=== PATIENT | female | born 1975 | race Caucasian/White ===

== ENCOUNTER 2018-12-07 13:52 | Observation (INO) ==
[2018-12-07] MEDS ORDERED: Acetaminophen 500 MG Tablet PO ONE (17:30)
--- NOTE | 2018-12-07 17:37 | ED ---
HPI General Chief Complaint: Chest Pain Stated Complaint: Chest/GI/ Complaint Time Seen by Provider: 12/07/18 17:13 Source: patient and family Mode of arrival: ambulatory Limitations: no limitations History of Present Illness HPI narrative: 43y female with a history of DM and FAH presents to the ED for evaluation of chest pain that started at noon today. She states she was with her here in the ED when it started. She points to her midsternal region and says it does not radiate. Described as sharp and aching. No palliative factors but states coughing makes it worse. She admits that she has had a mild cough that started last night but is unsure if this is related to allergies as she has environmental allergies. She denies shortness of breath. Denies history of tobacco use. Family history is notable for diabetes but no known cardiac problems. Her and her also note recent travel greater than 6 hours within the last couple of months. She denies history of blood clots previously. Denies history of cardiac problems. Brandon history of chest pain previously. Admits to a history of HTN, HLD, DM, alcohol syndrome. MD complaint: Reports chest pain Related Data Home Medications Medication Instructions Recorded Confirmed alprazolam [Xanax] 0.5 mg PO BID 11/10/18 12/07/18 ezetimibe [Zetia] 10 mg PO DAILY 11/10/18 12/01/18 glipizide 10 mg PO DAILY 11/10/18 12/07/18 metformin 500 mg PO BID 11/10/18 12/07/18 aspirin 325 mg PO DAILY 12/07/18 12/07/18 Previous Rx's Medication Instructions Recorded diclofenac sodium 75 mg PO BID PRN #20 tab 11/10/18 methocarbamol [Robaxin] 500 mg PO Q6H PRN #20 tab 11/10/18 tramadol 50 mg PO Q6-8H PRN #10 tab 11/10/18 diclofenac sodium 50 mg PO TID #12 tab 12/02/18 Allergies Allergy/AdvReac Type Severity Reaction Status Date / Time gabapentin Allergy Itching Verified 11/10/18 19:33 [facility] Medical History Medical History Anxiety (Acute) alcohol spectrum disorder (Acute) alcohol syndrome (Acute) Depression (Acute) Diabetes (Acute) Hyperlipemia (Acute) Social History Social History Substance History: No History of Abuse Second Hand Smoke Exposure: No Smoking Status: Never smoker How Often Do You Have a Drink Containing Alcohol: 4 or more times a week Recent Travel in [facility] within the Last 8 Weeks: No Recent Out of Country Travel within the Last 8 Weeks: No Immunization History Tetanus Immunization: >5 Years Exam Narrative Exam Narrative: GENERAL: WD, WN in NAD SKIN: Focused skin assessment warm/dry. HEAD: Atraumatic. Normocephalic. EYES: Pupils equal and round. No scleral icterus. No injection or drainage. ENT: No nasal bleeding or discharge. Mucous membranes pink and moist. No tonsillar hypertrophy or exudate. NECK: Trachea midline. No JVD. No meningismus. No midline tenderness. CARDIOVASCULAR: Regular rate and rhythm. No murmur appreciated. RESPIRATORY: No accessory muscle use. Clear to auscultation. Breath sounds equal bilaterally. MUSCULOSKELETAL: No obvious deformities. No clubbing. No cyanosis. No edema. No tenderness to palpation of the calves. Sensation intact to bilateral lower extremities. NEUROLOGICAL: Awake and alert. No obvious cranial nerve deficits. Motor grossly within normal limits. Normal speech. PSYCHIATRIC: Appropriate mood and affect; insight and judgment normal. Course Initial Documented Vital Signs Temperature 99.7 F H 12/07/18 13:55 Pulse Rate 110 H 12/07/18 13:55 Respiratory Rate 20 12/07/18 13:55 Blood Pressure 141/79 H 12/07/18 13:55 Pulse Oximetry 96 12/07/18 13:55 Last Documented Vital Signs Temperature 98.4 F 12/08/18 08:00 Pulse Rate 87 12/08/18 08:00 Respiratory Rate 16 12/08/18 08:00 Blood Pressure 109/59 L 12/08/18 08:00 Pulse Oximetry 96 12/08/18 08:00 Clinical Decision Support HEART Score Questions History: Slightly suspicious EKG: Normal Age: < 45 years Risk Factors: 1-2 Risk Factors Initial Troponin: Normal Limit Heart Score HEART Score: 1 Medical Decision Making GERHARD Attestation GERHARD supervised visit: Yes Attestation: I, Dr. Abdullahi, have reviewed the advance practice practitioner's documentation and am in agreement, met with the patient face to face, made the diagnosis, and the medical decision making was done by me. *My assessment and Findings: Chest pain MDM Narrative Medical decision making narrative: 42-year-old female with a history of diabetes mellitus, hypertension, hyperlipidemia, alcohol syndrome presents to the emergency department for evaluation of chest pain that started about noon today. She states that she was here at [place] with her when her pain started. She denies palliative factors but states coughing makes it worse. She points to the midsternal region and states it is nonradiating. Site is mild to moderate in severity. She denies shortness of breath but has associated nausea without vomiting. She denies history of heart problems previously. Patient states she is never worked up for her heart previously. She is a lifelong non-smoker. No known family history of heart disease. Her accompanies her and interjects frequently. Vital signs demonstrate blood pressure 118/81, heart rate 104, temp 99.1 Aspirin for possible ACS. Tylenol as she states she is developed a headache. Zofran for nausea. Her labs are stable at this time. Troponin less than 0.02. Magnesium 2.1. BUN and creatinine 12 and 0.83. Blood sugar 151. AST/ALT 97/79. Based off is a physical, believe that patient would benefit from a chest pain center admission and evaluation. She has never been evaluated for this complaint previously. 1/2 inch Nitropaste administered prior to her departure from the ED today. Medical Screen Exam Complete: Yes Emergency Medical Condition: Yes Differential Diagnosis Differential Diagnosis: AMI, angina, unstable angina, costochondritis, rib fracture, pneumonia, pneumothorax, aortic dissection, aortic aneurysm, pneumonitis, pulmonary embolism Lab Data Result diagrams: 12/07/18 17:10 12/07/18 17:10 Lab Results 12/07/18 12/07/18 12/07/18 Range/Units 17:10 17:10 17:10 WBC 6.9 (4.0-11.0) th/mm3 RBC 4.63 (4.00-5.30) mil/mm3 Hgb 15.0 (11.6-15.3) gm/dL Hct 44.0 (35.0-46.0) % MCV 94.8 (80.0-100.0) fL MCH 32.4 (27.0-34.0) pg MCHC 34.2 (32.0-36.0) % RDW 13.2 (11.6-17.2) % Plt Count 142 L (150-450) th/mm3 MPV 11.6 H (7.0-11.0) fL Neut % (Auto) 71.7 H (16.0-70.0) % Lymph % (Auto) 13.7 (9.0-44.0) % [place] % (Auto) 13.7 H (0.0-8.0) % Eos % (Auto) 0.5 (0.0-4.0) % Baso % (Auto) 0.4 (0.0-2.0) % Neut # (Auto) 5.0 (1.8-7.7) th/mm3 Lymph # (Auto) 1.0 (1.0-4.8) th/mm3 [place] # (Auto) 1.0 H (0.0-0.9) th/mm3 Eos # (Auto) 0.0 (0.0-0.4) th/mm3 Baso # (Auto) 0.0 (0.0-0.2) th/mm3 WBC Differential . Differential Comment Auto diff final PT 9.8 (9.8-11.6) sec INR 1.0 Ratio APTT 26.7 (23.4-31.7) sec D-Dimer Quant (PE/DVT) 0.38 (0.00-0.50) mg/L FEU Sodium 135 L (136-145) meq/L Potassium 4.9 (3.5-5.1) meq/L Chloride 102 (98-107) meq/L Carbon Dioxide 24.5 (21.0-32.0) meq/L Anion Gap 9 (5-15) meq/L BUN 12 (7-18) mg/dL Creatinine 0.83 (0.50-1.00) mg/dL Estimated GFR 75 L (>89) mL/min POC Glucose (68-110) mg/dl Random Glucose 151 H (74-106) mg/dL Calcium 9.0 (8.5-10.1) mg/dL Magnesium (1.5-2.5) mg/dL Total Bilirubin 0.5 (0.2-1.0) mg/dL AST 97 H (15-37) U/L ALT 79 H (10-53) U/L Alkaline Phosphatase 52 (45-117) U/L Total Creatine Kinase (26-192) U/L Troponin I Less than 0.02 L (0.02-0.05) ng/mL Total Protein 8.9 H (6.4-8.2) g/dL Albumin 4.3 (3.4-5.0) g/dL 12/07/18 12/07/18 12/07/18 Range/Units 17:10 17:10 20:51 WBC (4.0-11.0) th/mm3 RBC (4.00-5.30) mil/mm3 Hgb (11.6-15.3) gm/dL Hct (35.0-46.0) % MCV (80.0-100.0) fL MCH (27.0-34.0) pg MCHC (32.0-36.0) % RDW (11.6-17.2) % Plt Count (150-450) th/mm3 MPV (7.0-11.0) fL Neut % (Auto) (16.0-70.0) % Lymph % (Auto) (9.0-44.0) % [place] % (Auto) (0.0-8.0) % Eos % (Auto) (0.0-4.0) % Baso % (Auto) (0.0-2.0) % Neut # (Auto) (1.8-7.7) th/mm3 Lymph # (Auto) (1.0-4.8) th/mm3 [place] # (Auto) (0.0-0.9) th/mm3 Eos # (Auto) (0.0-0.4) th/mm3 Baso # (Auto) (0.0-0.2) th/mm3 WBC Differential Differential Comment PT Cancelled (9.8-11.6) sec INR Cancelled Ratio APTT Cancelled (23.4-31.7) sec D-Dimer Quant (PE/DVT) (0.00-0.50) mg/L FEU Sodium (136-145) meq/L Potassium (3.5-5.1) meq/L Chloride (98-107) meq/L Carbon Dioxide (21.0-32.0) meq/L Anion Gap (5-15) meq/L BUN (7-18) mg/dL Creatinine (0.50-1.00) mg/dL Estimated GFR (>89) mL/min POC Glucose (68-110) mg/dl Random Glucose (74-106) mg/dL Calcium (8.5-10.1) mg/dL Magnesium 2.1 (1.5-2.5) mg/dL Total Bilirubin (0.2-1.0) mg/dL AST (15-37) U/L ALT (10-53) U/L Alkaline Phosphatase (45-117) U/L Total Creatine Kinase 63 (26-192) U/L Troponin I Less than 0.02 L (0.02-0.05) ng/mL Total Protein (6.4-8.2) g/dL Albumin (3.4-5.0) g/dL 12/07/18 12/07/18 Range/Units 21:20 23:25 WBC (4.0-11.0) th/mm3 RBC (4.00-5.30) mil/mm3 Hgb (11.6-15.3) gm/dL Hct (35.0-46.0) % MCV (80.0-100.0) fL MCH (27.0-34.0) pg MCHC (32.0-36.0) % RDW (11.6-17.2) % Plt Count (150-450) th/mm3 MPV (7.0-11.0) fL Neut % (Auto) (16.0-70.0) % Lymph % (Auto) (9.0-44.0) % [place] % (Auto) (0.0-8.0) % Eos % (Auto) (0.0-4.0) % Baso % (Auto) (0.0-2.0) % Neut # (Auto) (1.8-7.7) th/mm3 Lymph # (Auto) (1.0-4.8) th/mm3 [place] # (Auto) (0.0-0.9) th/mm3 Eos # (Auto) (0.0-0.4) th/mm3 Baso # (Auto) (0.0-0.2) th/mm3 WBC Differential Differential Comment PT (9.8-11.6) sec INR Ratio APTT (23.4-31.7) sec D-Dimer Quant (PE/DVT) (0.00-0.50) mg/L FEU Sodium (136-145) meq/L Potassium (3.5-5.1) meq/L Chloride (98-107) meq/L Carbon Dioxide (21.0-32.0) meq/L Anion Gap (5-15) meq/L BUN (7-18) mg/dL Creatinine (0.50-1.00) mg/dL Estimated GFR (>89) mL/min POC Glucose 200 H (68-110) mg/dl Random Glucose (74-106) mg/dL Calcium (8.5-10.1) mg/dL Magnesium (1.5-2.5) mg/dL Total Bilirubin (0.2-1.0) mg/dL AST (15-37) U/L ALT (10-53) U/L Alkaline Phosphatase (45-117) U/L Total Creatine Kinase (26-192) U/L Troponin I Less than 0.02 L (0.02-0.05) ng/mL Total Protein (6.4-8.2) g/dL Albumin (3.4-5.0) g/dL Imaging Data Radiologist's impression: Chest X-Ray 12/07/18 17:28 CONCLUSION: No acute cardiopulmonary disease identified. Discharge Plan Discharge Disposition Patient Disposition: ED Admit(ED Internal Use Only) Discharge Condition Condition: Stable Discharge Order Discharge Orders: ED Use Only Admit Order (Routine); Ordered 12/07/18 Ordered By: Dianelys Payne Discharge Details Diagnosis: Chest pain Physicians Team ED Provider: Dany Abdullahi ED Midlevel Provider: Dianelys Payne Primary Care Provider: UNKNOWN, Attending Provider: Casimiro Higgins Status ED Status: Left Department Discharge Information Discharge Date/Time: 12/07/18 19:39
--- NOTE | 2018-12-07 17:51 | XR ---
EXAM DATE: 12/07/2018 5:48 PM EST AGE/SEX: 43 years / Female INDICATIONS: Mid chest pain. CLINICAL DATA: This is the patient's initial encounter. Patient reports that signs and symptoms have been present for 1 day and indicates a pain score of 8/10. MEDICAL/SURGICAL HISTORY: Hypertension. Asthma. None. COMPARISON: No prior exams available for comparison. FINDINGS: Single AP view the chest. Mild subsegmental atelectasis at the right lung base. The lungs a re otherwise clear. Cardiomediastinal silhouette within normal limits. No evidence of pleural effus ion or pneumothorax. CONCLUSION: No acute cardiopulmonary disease identified. Electronically signed by: Kevin Dolan MD Board Certified Radiologist 12/07/2018 5:50 PM EST
[2018-12-07 18:09] LABS: Baso % (Auto) 0.4 % (0.0-2.0); Eos % (Auto) 0.5 % (0.0-4.0); Lymph % (Auto) 13.7 % (9.0-44.0); Mean Corpuscular HGB Conc 34.2 % (32.0-36.0); Mean Corpuscular Hemoglobin 32.4 pg (27.0-34.0); Mean Corpuscular Volume 94.8 fL (80.0-100.0); Mean Platelet Volume 11.6 fL (7.0-11.0); Mono % (Auto) 13.7 % (0.0-8.0); Neut % (Auto) 71.7 % (16.0-70.0); Platelet Count 142 th/mm3 (150-450); Red Blood Count 4.63 mil/mm3 (4.00-5.30); Red Cell Distribution Width 13.2 % (11.6-17.2); White Blood Count 6.9 th/mm3 (4.0-11.0)
[2018-12-07 18:16] LABS: Activated Partial Thrombo Time 26.7 sec (23.4-31.7); Prothrombin Time 9.8 sec (9.8-11.6)
[2018-12-07 18:23] LABS: D-Dimer 0.38 mg/L FEU (0.00-0.50)
[2018-12-07 18:24] LABS: Alanine Aminotransferase 79 U/L (10-53); Alkaline Phosphatase 52 U/L (45-117); Total Protein 8.9 g/dL (6.4-8.2)
[2018-12-07 18:39] LABS: Albumin 4.3 g/dL (3.4-5.0); Anion Gap 9 meq/L (5-15); Aspartate Aminotransferase 97 U/L (15-37); Blood Urea Nitrogen 12 mg/dL (7-18); Carbon Dioxide 24.5 meq/L (21.0-32.0); Chloride 102 meq/L (98-107); Glomerular Filtration Rate 75 mL/min (>89); Glucose,Random 151 mg/dL (74-106); Sodium 135 meq/L (136-145)
[2018-12-07 18:40] LABS: Potassium 4.9 meq/L (3.5-5.1)
[2018-12-07 20:58] VITALS: O2SAT 96
[2018-12-07 21:52] LABS: Creatine Kinase 63 U/L (26-192)
[2018-12-07] MEDS: Acetaminophen 500 MG Tablet PO PRN (23:55)
[2018-12-08 04:07] VITALS: RESP 16
[2018-12-08] MEDS: Acetaminophen 500 MG Tablet PO PRN (06:07)
--- NOTE | 2018-12-08 07:58 | ECG ---
Date Performed: 12/07/2018 Time Performed: 23:32:22 PTAGE: 43 years EKG: Sinus rhythm NORMAL ECG Since PREVIOUS TRACING , no significant change noted DOCTOR: Zainab Jose Interpretating Date/Time 12/08/2018 07:56:26
--- NOTE | 2018-12-08 07:59 | ECG ---
Date Performed: 12/07/2018 Time Performed: 21:06:08 PTAGE: 43 years EKG: Sinus rhythm NORMAL ECG Since PREVIOUS TRACING , no significant change noted PREVIOUS TRACIN12/07/2018 14.06 DOCTOR: Zainab Jose Interpretating Date/Time 12/08/2018 07:57:20
--- NOTE | 2018-12-08 07:59 | ECG ---
Date Performed: 12/07/2018 Time Performed: 14:06:22 PTAGE: 43 years EKG: Sinus rhythm NORMAL ECG NO PREVIOUS TRACING DOCTOR: Zainab Jose Interpretating Date/Time 12/08/2018 07:57:52
--- NOTE | 2018-12-08 08:01 | P.HPCA ---
History of Present Illness Primary Care Physician: None-states she had appointment with [facility] 01/03/19 but cancelled -states "I didn't want to wait that long for an appointment." Chief Complaint: Chest pain History of Present Illness: 43 year old female with history of hypertension, hyperlipidemia, diabetes, and anxiety presents the emergency room for further evaluation of chest pain. Onset yesterday at noon. Location substernal. Characterized as sharp. No radiation. No precipitating nausea, vomiting, dyspnea or diaphoresis. Precipitating factors for makes pain worse. No relieving factors. Reports recent low-grade fever, no chills. Past cardiac testing None Social history Known hyperlipidemia, hypertension, and diabetes. No known coronary artery disease. Family history Noncontributory for early onset cardiovascular disease - Diagnosis (1) Atypical chest pain (2) Hypertension (3) Hyperlipidemia (4) Type II diabetes mellitus Review of Systems All other systems reviewed negative except as stated in HPI PMFSH - History History Provided By: Patient - Medical History Medical History: Medical History (Last Updated 12/08/18 @ 09:28 by ARY Wilson) Anxiety alcohol spectrum disorder alcohol syndrome Depression Diabetes Hyperlipemia - Surgical History Surgical History: Surgical History (Last Reviewed 12/08/18 @ 09:28 by ARY Wilson) History of gastric surgery - Tobacco History Second Hand Smoke Exposure: No Smoking Status: Never smoker - Alcohol History How Often Do You Have a Drink Containing Alcohol: 4 or more times a week - Substance Use History Substance History: No History of Abuse - Travel History Recent Travel in the [place] Within the Last 8 Weeks: No Recent Travel Out of the Country Within the Last 8 Weeks: No - Immunization History Tetanus Immunization: >5 Years Medications and Allergies Active Medications: Active Medications Acetaminophen (Tylenol) 500 mg PO Q4H PRN PRN Reason: HEADACHE Last Admin: 12/08/18 06:07 Dose: 500 mg Nitroglycerin (Nitro-Bid 2% Oint) 0.5 inch TOPICAL Q6HR KAI Last Admin: 12/08/18 06:07 Dose: 0.5 inch Ondansetron HCl (Zofran Inj) 4 mg IV.PUSH Q6H PRN PRN Reason: NAUSEA Sodium Chloride (Ns Flush) 2 ml IV.FLUSH UNSCH PRN PRN Reason: FLUSH AFTER USING IV ACCESS Last Admin: 12/07/18 17:39 Dose: 2 ml Sodium Chloride (Ns Flush) 2 ml IV.FLUSH BID KAI Last Admin: 12/07/18 21:58 Dose: 2 ml Sodium Chloride (Ns Flush) 2 ml IV.FLUSH PRN PRN PRN Reason: FLUSH AFTER USING IV ACCESS Allergies Allergy/AdvReac Type Severity Reaction Status Date / Time gabapentin Allergy Itching Verified 11/10/18 19:33 Home Medications Medication Instructions Recorded Confirmed Type alprazolam [Xanax] 0.5 mg PO BID 11/10/18 12/07/18 History ezetimibe [Zetia] 10 mg PO DAILY 11/10/18 12/01/18 History glipizide 10 mg PO DAILY 11/10/18 12/07/18 History metformin 500 mg PO BID 11/10/18 12/07/18 History aspirin 325 mg PO DAILY 12/07/18 12/07/18 History [id number] 1 cap PO Q4H PRN 12/08/18 12/08/18 History [Fioricet] Exam Vital signs: Vital Signs 12/07/18 13:55 12/07/18 17:03 12/07/18 18:51 Temperature 99.7 F H Pulse Rate 110 H 98 H 95 H Respiratory Rate 20 16 Blood Pressure 141/79 H 136/68 Pulse Oximetry 96 97 98 12/07/18 18:56 12/07/18 18:57 12/07/18 20:00 Temperature 99.1 F 98.7 F Pulse Rate 104 H 97 H Respiratory Rate 18 16 Blood Pressure 118/81 122/74 Pulse Oximetry 98 97 96 12/07/18 23:30 12/08/18 00:00 12/08/18 04:00 Temperature 99.2 F 99.4 F Pulse Rate 99 H 105 H 98 H Respiratory Rate 18 16 Blood Pressure 109/72 115/66 Pulse Oximetry 96 96 Intake & Output 12/07/18 12/08/18 12/08/18 18:59 06:59 18:59 Weight 54.431 kg 54.431 kg Other: Date of Last Bowel Movement 12/07/18 Weight On Admission 54.431 kg Narrative: GENERAL: Alert WN, WD, NAD, pleasant, female HEAD: NC, AT EYES: Sclera clear, conjunctiva without injection, pupils equal and round ENT: Mucous membranes pink and moist NECK: Supple, no masses, trachea midline CV: RRR, without murmur, rub, gallop. Chest wall nontender to palpation. RESP: Clear lungs throughout bilateral, no crackles, wheeze, rhonchi, symmetrical chest rise, nonlabored, able to speak in full sentences ABD: Soft, NT, ND, no masses, positive bowel tones EXT: Pulses +2x4, no dependent edema MS: Normal tone x4 extremities, nontender, no obvious deformities, full range of motion NEURO: Motor strength 5/5 PSYCH: A+O x3, pleasant affect, appropriate speech, mood, insight and judgment SKIN: Normal turgor, normal texture, no lesions, no rashes, brisk cap refill, even hair distribution Results 12/07/18 17:10 12/07/18 17:10 Cardiac Enzymes 12/07/18 12/07/18 12/07/18 Range/Units 17:10 20:51 23:25 AST 97 H (15-37) U/L Troponin I Less than 0.02 L Less than 0.02 L Less than 0.02 L (0.02-0.05) ng/mL Coagulation 12/07/18 12/07/18 Range/Units 17:10 17:10 PT 9.8 Cancelled (9.8-11.6) sec APTT 26.7 Cancelled (23.4-31.7) sec CBC 12/07/18 Range/Units 17:10 WBC 6.9 (4.0-11.0) th/mm3 RBC 4.63 (4.00-5.30) mil/mm3 Hgb 15.0 (11.6-15.3) gm/dL Hct 44.0 (35.0-46.0) % Plt Count 142 L (150-450) th/mm3 Neut # (Auto) 5.0 (1.8-7.7) th/mm3 Lymph # (Auto) 1.0 (1.0-4.8) th/mm3 [place] # (Auto) 1.0 H (0.0-0.9) th/mm3 Eos # (Auto) 0.0 (0.0-0.4) th/mm3 Baso # (Auto) 0.0 (0.0-0.2) th/mm3 Comprehensive Metabolic Panel 12/07/18 Range/Units 17:10 Sodium 135 L (136-145) meq/L Potassium 4.9 (3.5-5.1) meq/L Chloride 102 (98-107) meq/L Carbon Dioxide 24.5 (21.0-32.0) meq/L BUN 12 (7-18) mg/dL Creatinine 0.83 (0.50-1.00) mg/dL Calcium 9.0 (8.5-10.1) mg/dL AST 97 H (15-37) U/L ALT 79 H (10-53) U/L Alkaline Phosphatase 52 (45-117) U/L Total Protein 8.9 H (6.4-8.2) g/dL Albumin 4.3 (3.4-5.0) g/dL Intake and Output 12/07/18 12/08/18 12/08/18 22:59 06:59 14:59 Other: Date of Last Bowel Movement 12/07/18 Weight 54.431 kg Weight On Admission 54.431 kg - Imaging and Cardiology Imaging: Impressions Chest X-Ray 12/07/18 17:28 CONCLUSION: No acute cardiopulmonary disease identified. EKG interpretations - EKG EKG results cardiology: sinus rhythm, normal QRS, normal ST/T Caprini VTE Risk Assessment Caprini VTE Risk Assessment: No/Low Risk (score <= 1) Caprini Risk Assessment Model: Point Value = 1 Point Value = 2 Point Value = 3 Point Value = 5 Age 41-60 Minor surgery BMI > 25 kg/m2 Swollen legs Varicose veins or History of unexplained or recurrent spontaneous Oral contraceptives or hormone replacement Sepsis (< 1 month) Serious lung disease, including pneumonia (< 1 month) Abnormal pulmonary function Acute myocardial infarction Congestive heart failure (< 1 month) History of inflammatory bowel disease Medical patient at bed rest Age 61-74 Arthroscopic surgery Major open surgery (> 45 min) Laparoscopic surgery (> 45 min) Malignancy Confined to bed (> 72 hours) Immobilizing plaster cast Central venous access Age >= 75 History of VTE Family history of VTE Factor V Leiden Prothrombin [id number] Lupus anticoagulant Anticardiolipin antibodies Elevated serum homocysteine Heparin-induced thrombocytopenia Other congenital or acquired thrombophilia Stroke (< 1 month) Elective arthroplasty Hip, pelvis, or leg fracture Acute spinal cord injury (< 1 month) Prophylaxis Regimen: Total Risk Factor Score Risk Level Prophylaxis Regimen 0-1 Low Early ambulation 2 Moderate Order ONE of the following: *Sequential Compression Device (SCD) *Heparin 5000 units SQ BID 3-4 Higher Order ONE of the following medications: *Heparin 5000 units SQ TID *Enoxaparin/Lovenox 40 mg SQ daily (WT < 150 kg, CrCl > 30 mL/min) *Enoxaparin/Lovenox 30 mg SQ daily (WT < 150 kg, CrCl > 10-29 mL/min) *Enoxaparin/Lovenox 30 mg SQ BID (WT < 150 kg, CrCl > 30 mL/min) AND/OR *Sequential Compression Device (SCD) 5 or more Highest Order ONE of the following medications: *Heparin 5000 units SQ TID (Preferred with Epidurals) *Enoxaparin/Lovenox 40 mg SQ daily (WT < 150 kg, CrCl > 30 mL/min) *Enoxaparin/Lovenox 30 mg SQ daily (WT < 150 kg, CrCl > 10-29 mL/min) *Enoxaparin/Lovenox 30 mg SQ BID (WT < 150 kg, CrCl > 30 mL/min) AND *Sequential Compression Device (SCD) Assessment and Plan - Assessment (1) Atypical chest pain Code(s): R07.89 - Other chest pain Status: Acute Plan: Admitted to chest pain center. Monitored on telemetry overnight. ACS ruled out with 3 sets of EKGs and cardiac enzymes. Evaluated by Dr. Zainab Jose. Proceed with exercise cardiac testing. If unremarkable, plan is to discharge home with her primary care provider. Strongly encouraged her to establish with a primary care provider. 0920-Multiple attempts made to ambulated patient on treadmill, however she unable to walk safely. Cardiac testing changed to Lexiscan. (2) Hypertension Code(s): I10 - Essential (primary) hypertension Status: Chronic Plan: Continue to monitor. Plans to continued home medications once update in [facility]. (3) Hyperlipidemia Code(s): E78.5 - Hyperlipidemia, unspecified Status: Chronic Plan: Continue Zetia. (4) Type II diabetes mellitus Code(s): E11.9 - Type 2 diabetes mellitus without complications Status: Chronic Plan: SSI low dose coverage. Hold oral anti-glycemic. H&P: Quality - VTE Deep Vein Thrombosis/Pulmonary Embolism Present on Admission: No (2) Hypertension Qualifiers: Hypertension type: unspecified Qualified Code(s): I10 - Essential (primary) hypertension (3) Hyperlipidemia Qualifiers: Hyperlipidemia type: unspecified Qualified Code(s): E78.5 - Hyperlipidemia, unspecified (4) Type II diabetes mellitus Qualifiers: Diabetes mellitus snf insulin use: without snf use Diabetes mellitus complication status: with unspecified complications Qualified Code(s) : E11.8 - Type 2 diabetes mellitus with unspecified complications
[2018-12-08 08:07] VITALS: BP 109/59; PULSE 87; TEMP 98.4
[2018-12-08] MEDS ORDERED: Regadenoson Inj 0.4 MG/5 ML Syringe IV.PUSH ONE (09:32)
[2018-12-08] MEDS ORDERED: Dextrose 50% in Water 50 ML Vial IV.PUSH PRN (09:33)
[2018-12-08] MEDS ORDERED: Insulin NovoLOG Aspart Correctional Sugar Inj SQ SCH (12:00)
--- NOTE | 2018-12-08 13:38 | NM ---
EXAM DATE: 12/08/2018 1:11 PM EST AGE/SEX: 43 years / Female INDICATIONS:Angina. . Substernal chest pain. CLINICAL DATA: This is the patient's initial encounter. Patient reports that signs and symptoms have been present for 1 day and indicates a pain score of 2/10. MEDICAL/SURGICAL HISTORY: Diabetes. Hyperlipidemia, Anxiety, alcohol syndrome. . Gastric surgery. COMPARISON: No prior exams available for comparison. DOSE: 8.4 mCi Tc 99m Myoview at rest 26.1 mCi [id number] at stress 0.4 mg Lexiscan STRESS SYMPTOMS: Abdominal cramping, headache. EJECTION FRACTION: > 70 % TECHNIQUE: The patient underwent pharmacologic stress with infusion of prescribed dose. Continuous ECG tracing was monitored during stress. Gated SPECT imaging was performed after stress and conventi onal SPECT imaging was performed at rest. The examination was performed on a SPECT/CT scanner, both attenuation and non-corrected datasets were reviewed. FINDINGS: Distribution: The maximum perfused segment at stress is in the lateral wall. Perfusion Study: The pattern of perfusion at stress is within normal limits. Gated Study: There are intact wall motion and wall thickening without hypokinetic or dyskinetic segm ents. The ejection fraction is calculated at > 70%. RISK CATEGORY: Low (<1% Annual Mortality Rate) CONCLUSION: 1. No evidence for stress-induced ischemia. 2. Intact wall motion with EF of greater than 70%. Electronically signed by: Jorge Luis Bahena MD Board Certified Radiologist 12/08/2018 1:37 PM EST
--- NOTE | 2018-12-08 17:42 | TR ---
Date Performed: 12/08/2018 Time Performed: 12:14:04 DOCTOR: Zainab Jose DRUG LIST: CLINICAL HISTORY: REASON FOR TEST: REASON FOR ENDING: OBSERVATION: CONCLUSION: Lexiscan stress test was performed under standard four minute protocol. Radionuclid e was injected one minute prior to ending the test. No electrocardiographic abormalities were present to suggest ischemia. Nuclear imaging and interpretation are pending. COMMENTS: Lexiscan stress test was performed under standard four minute protocol. Radionuclide was injected one minute prior to ending the test. No electrocardiographic abormalities were present t o suggest ischemia. Nuclear imaging and interpretation are pending.
== END 2018-12-08 15:05 | disposition home or self-care (01) ==
LOC: NEDA 13:52 → NEPC 13:52 → NEDA 19:39 → NEPGCP 19:40
PROVIDERS: ADMIT Internal Medicine Cardiovascular Disease; ATTEND Internal Medicine Cardiovascular Disease
DX: Z79.84 Long term (current) use of oral hypoglycemic drugs; I10 Essential (primary) hypertension; E11.9 Type 2 diabetes mellitus without complications; R07.89 Other chest pain; F32.9 Major depressive disorder, single episode, unspecified; E78.5 Hyperlipidemia, unspecified; Z79.82 Long term (current) use of aspirin; Q86.0 Fetal alcohol syndrome (dysmorphic); Z79.899 Other long term (current) drug therapy; F41.9 Anxiety disorder, unspecified
CPT/HCPCS: 71010; 71045; 78452; 80053; 82550; 82948; 82962; 83735; 84484; 85025; 85379; 85610; 85730; 90774; 90784; 93005; 93017; 96374; 97161; 99285; A9502; C8952; G0378; G8987; G8988; G8989; J2405; J2785; Q9969